=== PATIENT | male | born 1930 | race Caucasian/White ===

== ENCOUNTER 2017-03-16 16:21 | Emergency (ER) | payer OTHER, MEDICAID ==
[2017-03-16 19:46] LABS: ADD MAN DIFF? NO
[2017-03-16 19:47] LABS: BASOPHIL # 0.1 10^3/ul (0.0-0.1); BASOPHILS % 0.6 % (0.0-2.0); EOSINOPHILS # 0.3 10^3/ul (0.0-0.5); EOSINOPHILS % 3.3 % (0.0-7.0); HEMOGLOBIN 15.2 g/dl (14.0-18.0); LYMPHOCYTES # 1.3 10^3/ul (0.8-2.9); LYMPHOCYTES % 16.5 % (15.0-51.0); MEAN CORPUSCULAR HEMOGLOBIN 31.9 pg (29.0-33.0); MEAN CORPUSCULAR HGB CONC 33.8 g/dl (32.0-37.0); MEAN CORPUSCULAR VOLUME 94.3 fl (82.0-101.0); MEAN PLATELET VOLUME 9.9 fl (7.4-10.4); MONOCYTE # 0.8 10^3/ul (0.3-0.9); MONOCYTES % 9.7 % (0.0-11.0); NEUTROPHIL # 5.7 10^3/ul (1.6-7.5); NEUTROPHILS % 69.5 % (39.0-77.0); PLATELET COUNT 228 10^3/UL (140-415); RED BLOOD COUNT 4.77 10^6/ul (4.70-6.10); RED CELL DISTRIBUTION WIDTH 13.8 % (11.5-14.5)
[2017-03-16 19:47] LABS: WHITE BLOOD COUNT 8.1 10^3/ul (4.8-10.8)
[2017-03-16 20:05] LABS: ANION GAP 14 (8-16); BLOOD UREA NITROGEN 15 mg/dl (7-20); CALCIUM 8.8 mg/dl (8.4-10.2); CARBON DIOXIDE 25 mmol/L (21-31); CHLORIDE 104 mmol/L (97-110); CREATININE 0.74 mg/dl (0.61-1.24); GLUCOSE 119 mg/dl (70-220); SODIUM 139 mmol/L (135-144)
[2017-03-16 20:17] LABS: B-TYPE NATRIURETIC PEPTIDE 493 PG/ML (0-450); TROPONIN-I < 0.012 ng/ml (0.00-0.12)
[2017-03-16] MEDS: SOD CHLORIDE 0.9% 1,000 ML IV (20:20)
[2017-03-16] MEDS: LEVOFLOXACIN 500MG/D5W (PMX) 100 ML IVPB (21:20)
== END 2017-03-17 01:20 | disposition short-term general hospital (02) ==
LOC: E/R 03-17 01:20
DX: J18.9 Pneumonia, unspecified organism (principal); C22.9 Malignant neoplasm of liver, not specified as primary or secondary; K80.20 Calculus of gallbladder without cholecystitis without obstruction; H61.23 Impacted cerumen, bilateral; E11.9 Type 2 diabetes mellitus without complications; F17.210 Nicotine dependence, cigarettes, uncomplicated; R07.9 Chest pain, unspecified; Z79.4 Long term (current) use of insulin
CPT/HCPCS: 36415; 71045; 74176; 80048; 83880; 84484; 85025; 87040; 93005; 96374; 99285-25